=== PATIENT | female | born 1980 | race Caucasian/White ===

== ENCOUNTER 2018-08-28 13:38 | Day surgery (SDC) | payer OTHER ==
[2018-08-28] MEDS ORDERED: LR 1,000 ML IV ONE (13:54)
--- NOTE | 2018-08-28 14:28 | PDANEPAE ---
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 migraines occas - Endocrine History Hx Diabetes: No Hypothyroid: No Hyperthyroid: No Obesity: no - Renal History Hx Renal Disorders: No - Liver History Hx Hepatic Disorders: No - Neurological & Psychiatric Hx Hx Neurological and Psychiatric Disorders: No - Cancer History Hx Cancer: No - Congenital Disorder History Hx Congenital Disorders: No - GI History GERD: no Hx Gastrointestinal Disorders: Yes Gastrointestinal History Comment: constipation. polyps last colonoscopy age 23 benign - Other Health History Other Health History: none - Chronic Pain History Chronic Pain: No - Surgical History Prior Surgeries: laparoscopy. breast reduction ANE Review of Systems Review of Systems: - Exercise capacity METS (RN): 5 METS ANE Patient History - Allergies Allergies/Adverse Reactions: amoxicillin Allergy (Verified 08/20/18 10:02) Hives latex Allergy (Verified 08/20/18 10:02) Hives - Home Medications Home Medications: Advil 08/20/18 [Last Taken Unknown] - NPO status NPO Since - Liquids (Date): 08/27/18 NPO Since - Liquids (Time): 23:59 NPO Since - Solids (Date): 08/27/18 NPO Since - Solids (Time): 09:00 - Anes Hx Anes Hx: no prior problems - Smoking Hx Smoking Status: Former smoker (stopped in high school.) Marijuana use: Yes - Alcohol Use Alcohol Use: None - Family Anes Hx Family Hx Anesthesia Complications: sister gets severe nausea & vomiting ANE Labs/Vital Signs - Vital Signs Blood Pressure: 104/78 Heart Rate: 66 Respiratory Rate: 16 O2 Sat (%): 98 Height: 157.48 cm Weight: 58.967 kg ANE Physical Exam - Airway Neck exam: FROM Mallampati Score: Class 1 - Pulmonary Pulmonary: clear to auscultation - Cardiovascular Cardiovascular: regular rate and rhythym - ASA Status ASA Status: II ANE Anesthesia Plan Anesthesia Plan: GA with mask
[2018-08-28] MEDS ORDERED: MIDAZOLAM 2 MG/2 ML VIAL IVP ONE ×2 (14:50→15:14)
[2018-08-28] MEDS ORDERED: PROPOFOL 200 MG/20 ML VIAL ONE ×2 (14:54→14:55)
[2018-08-28] MEDS ORDERED: fentaNYL 100 MCG/2 ML INJ ONE (14:59)
--- NOTE | 2018-08-28 15:03 | PDGENHP ---
History & Physical Chief Complaint: fhx polyps father, phx poolyp age 17 History of Present Illness: phx polyps Pertinent Past, Social, Family History: no tobacco. alcohol = none. FHx - dad with polyps PGM colon dcacner Relevant Physical Exam: A+Ox3. CTA. +BS, soft nt. S1Sq2, RRR Cardiorespiratory Assessment: class II
[2018-08-28] MEDS ORDERED: fentaNYL 100 MCG/2 ML INJ IVP PRN (15:20)
[2018-08-28] MEDS ORDERED: NALOXONE HCL 0.4 MG/ML INJ IVP PRN (15:20)
--- NOTE | 2018-08-28 15:42 | POSTANESTH ---
Post Anesthetic Evaluation Cardiovascular Status: Normal, Stable Respiratory Status: Normal, Stable Level of Consciousness/Mental Status: Can Participate in Eval Pain Control: Adequate, Prn Tx Ordered Nausea/Vomiting Control: Adequate, Prn Tx Ordered Complications Possibly Related to Anesthesia: None Noted
[2018-08-28 16:19] VITALS: BP 101/63
--- NOTE | 2018-08-28 16:59 | GIREPORT ---
[facility] - Endoscopy Department Patient Name: Glory Bhakta Procedure Date: 08/28/2018 11:39 AM Patient Type: Outpatient Attending MD/ ER Physician: Rayray Bradley MD Procedure: Colonoscopy Indications: Colon cancer screening in patient at increased risk: Family history of 1st-degree relative with colon polyps, Family history of colon cancer i n a distant relative Providers: Rayray Bradley MD Referring MD: Rogers Javed MD Medicines: Propofol per Anesthesia = IV general with spont resps Complications: No immediate complications. Estimated blood loss: Minimal. Description of Procedure: After obtaining informed consent, the scope was passed under direct vis ion. Throughout the procedure, the patient's blood pressure, pulse, and oxyg en saturations were monitored continuously. The Colonoscope with irrigatio n channel was introduced through the anus and advanced to the terminal il eum, with identification of the appendiceal orifice and IC valve. The colono scopy was performed without difficulty. The patient tolerated the procedure w ell. The quality of the bowel preparation was good. Findings: The perianal and digital rectal examinations were normal. The terminal ileum appeared normal. A 6 mm polyp was found in the transverse colon. The polyp was sessile. The polyp was removed with a cold snare. Resection and retrieval were compl ete. Estimated blood loss was minimal. Two sessile polyps were found in the descending colon. The polyps were 3 to 4 mm in size. These polyps were removed with a piecemeal technique usin g a cold biopsy forceps. Resection and retrieval were complete. Estimated b lood loss was minimal. The exam was otherwise without abnormality. Estimated Blood Loss: Estimated blood loss was minimal. Post Op Diagnosis: - The examined portion of the ileum was normal. - One 6 mm polyp in the transverse colon, removed with a cold snare. Resected and retrieved. - Two 3 to 4 mm polyps in the descending colon, removed piecemeal using a cold biopsy forceps. Resected and retrieved. - The examination was otherwise normal. Recommendation: - Await pathology results. - My office will call with the pathology result with 5-7 days. If you h ave not heard from my office by 14, do not assume the pathology is magalie l, please call [phone] to get the pathology results. - Repeat colonoscopy in 5 years for surveillance based on pathology res ults. If all three are adenomatous (adenoma = with cancer potential) then the interval is 3 years. - Please found out the pathology of your father's polyps and age when f irst removed. - Resume previous diet. - Patient has a contact number available for emergencies. The signs and symptoms of potential delayed complications were discussed with the pat ient. Return to normal activities tomorrow. Written discharge instructions we re provided to the patient. - Continue present medications. - Discharge patient to home (ambulatory). - Return to primary care physician as previously scheduled. - Thank you for allowing me to help in your patient's care. Do not hesi portillo to call with any questions. Attending Participation: I personally performed the entire procedure. Mirna Cai M.D Rayray Bradley MD 08/28/2018 4:58:36 PM This report has been signed electronicallyMattmarkw MD Mirna Number of Addenda: 0 Note Initiated On: 08/28/2018 11:39 AM Total Procedure Duration Time 0 hours 19 minutes 0 seconds [email or web address]
== END 2018-08-28 17:00 | disposition home or self-care (01) ==
LOC: FSGY 13:38
PROVIDERS: ATTEND Internal Medicine Gastroenterology
PROC: 0DBL8ZX Excision of Transverse Colon, Via Natural or Artificial Opening Endoscopic, Diagnostic (ICD-10-PCS; principal; 2018-08-28 15:00)
PROC: 0DBM8ZX Excision of Descending Colon, Via Natural or Artificial Opening Endoscopic, Diagnostic (ICD-10-PCS; principal; 2018-08-28 15:00)
PROC: 0DJD8ZZ Inspection of Lower Intestinal Tract, Via Natural or Artificial Opening Endoscopic (ICD-10-PCS; principal; 2018-08-28 15:00)
DX: Z12.11 Encounter for screening for malignant neoplasm of colon (principal); K63.5 Polyp of colon; D12.4 Benign neoplasm of descending colon; Z80.0 Family history of malignant neoplasm of digestive organs; Z83.71 Family history of colonic polyps; K59.00 Constipation, unspecified
CPT/HCPCS: J2250; J2704; J3010